=== PATIENT | female | born 1960 | race Caucasian/White ===

== ENCOUNTER 2022-01-25 17:38 | Emergency (ER) | payer MEDICARE, SELFPAY ==
[2022-01-25] VITALS (8 sets, daily range): BP systolic 142–159; BP diastolic 65–81; PULSE 76–86; RESP 18; TEMP 37.1; O2SAT 97–99; BMI 20.1
--- NOTE | 2022-01-25 18:18 | DI.RAD.S_ITS ---
PROCEDURE: XR CHEST 1V INDICATIONS: chest pain TECHNIQUE: One view of the chest was acquired. COMPARISON: None. FINDINGS: Surgical changes and devices: None. Lungs and pleura: Lungs are clear. No pleural effusions or pneumothorax. Mediastinum: Mediastinal contours appear normal. Heart size is normal. Bones and chest wall: No suspicious bony lesions. Overlying soft tissues appear unremarkable. IMPRESSION: No acute cardiopulmonary abnormality. Dictated by: Richar Peterson M.D. on 01/25/2022 at 19:44 Approved by: Richar Peterson M.D. on 01/25/2022 at 19:44
[2022-01-25 18:54] LABS: COVID19 -Nasal RAPID Negative (Negative)
[2022-01-25 19:32] LABS: Add Manual Diff / Slide Review NO; Basophils Absolute Auto 100 /uL (0-100); Basophils Percent Auto 1.3 % (0-2); Eosinophils Absolute Auto 100 /uL (0-450); Eosinophils Percent Auto 1.5 % (2-4); Hematocrit 34.4 % (36-46); Hemoglobin 11.5 g/dL (12.0-16.0); Lymphocytes Absolute Auto 2300 /uL (1100-4500); Lymphocytes Percent Auto 27.1 % (25-40); Mean Corpuscular HGB Conc 33.4 % (30-36); Mean Corpuscular Hemoglobin 29.4 PG (26-34); Mean Corpuscular Volume 88.1 fL (80-100); Monocytes Absolute Auto 400 /uL (0-900); Monocytes Percent Auto 5.1 % (3-14); Neutrophils Absolute Auto 5500 /uL (1500-7000); Platelet Count 397 X10^3/uL (150-400); Red Cell Distribution Width 13.3 % (11.6-14.8); White Blood Cell Count 8.4 X10^3/uL (4.5-11.0)
[2022-01-25 20:08] LABS: Alanine Aminotransferase 19 IU/L (<35); Albumin 4.5 g/dL (3.5-5.0); Albumin Globulin Ratio 1.5 (1.0-2.8); Alkaline Phosphatase 61 U/L (38-126); Aspartate Aminotransferase 37 IU/L (14-36); BUN Creatinine Ratio 16.9 (6-22); Bilirubin Total 0.3 mg/dL (0.2-1.3); Blood Urea Nitrogen 27 mg/dL (7-17); Calcium 9.1 mg/dL (8.4-10.2); Carbon Dioxide 32 mmol/L (22-32); Chloride 103 mmol/L (98-107); Creatine Kinase 134 U/L (30-135); Estimated Glomerular Filt Rate 36 mL/min (>60); Globulin 3.1 g/dL (1.7-4.1); Glucose 121 mg/dL (80-110); HEMOLYSIS < 15 (0-50); Lipase 223 U/L (23-300); Magnesium 2.3 mg/dL (1.6-2.3); Sodium 141 mmol/L (137-145); Total Protein 7.6 g/dL (6.3-8.2)
[2022-01-25 20:20] LABS: Troponin I < 0.012 ng/mL (0.01-0.034)
--- NOTE | 2022-01-25 20:21 | ED.NEUROSD ---
HPI - Neuro Symptoms/Deficit General Chief Complaint: Neuro Symptoms/Deficit Stated Complaint: tingly throughout body/prev stroke-head&dizzy Time Seen by Provider: 01/25/22 19:41 Source: patient Mode of arrival: Family Vehicle History of Present Illness HPI Narrative: Patient is a 62-year-old female history of 3 strokes. She said her for stroke she had a simultaneous right and left stroke, her neck stroke was on the left side she had some numbness tingling weakness and garbled speech at that time. She has residual bilateral numbness and tingling for which he takes gabapentin for. She says over last few days she just does not feel quite right. She has generalized fatigue weakness she has got tingling all over. No significant weakness no speech difficulty. She has had some blurry vision is. She feels nauseous but no vomiting. She has had some ongoing chest pressure is which she feels like is worse at nighttime. It is not any worse with exertion. It is also not any worse today than it has been previously. She also has a slight headache on the left which is abnormal for her. On Anticoagulants: Yes Related Data Allergies Allergy/AdvReac Type Severity Reaction Status Date / Time Sulfa (Sulfonamide Allergy Redness of Verified 01/25/22 18:17 Antibiotics) Skin Review of Systems Review of Systems Narrative: GENERAL: Denies chills, fatigue, malaise, fever, sweats, travel HEENT: Denies sinus pain, ear pain, sore throat, difficulty swallowing, neck pain RESPIRATORY: Denies dyspnea, cough, wheezing, hemoptysis, sputum. CARDIOVASCULAR: Denies chest pain, palpitations, orthopnea, edema GASTROINTESTINAL: Denies nausea, vomiting, abdominal pain, diarrhea, constipation, melena. : Denies dysuria, frequency, incontinence, hematuria, urinary retention, flank pain. MUSCULOSKELETAL: Denies weakness, joint pain, or bony pain SKIN: No rash, no erythema, no pruritus NEUROLOGIC: See HPI PSYCHIATRIC: No concerning psychosocial issues. 12 point review of systems is negative except for those stated above and HPI Hematologic/Lymphatic On Anticoagulants: Yes Patient History Social History Smoking Status: Former smoker Smoking Status: Former smoker tobacco type: cigarettes alcohol intake frequency: 0-2 drinks per day Substance Use Type: does not use Exam Initial Vital Signs Initial Vital Signs: Vital Signs Temperature 98.7 F 01/25/22 18:18 Pulse Rate 76 01/25/22 18:18 Respiratory Rate 18 01/25/22 18:18 Blood Pressure 157/67 H 01/25/22 18:18 Pulse Oximetry 99 01/25/22 18:18 Oxygen Delivery Method 01/25/22 18:18 GENERAL: Alert 62-year-old female and in no acute distress. HEENT: Head atraumatic,EOMI, pupils reactive, face symmetric, moist mucous membranes CARDIOVASCULAR: Regular rate and rhythm without murmurs, rubs or gallops. RESPIRATORY: Breath sounds equal bilaterally, no wheezes rales or rhonchi. ABDOMEN: Soft, nontender. Normoactive bowel sounds all 4 quadrants. No guarding or rebound. EXTREMITIES: Normal range of motion, no clubbing or edema. Neurovascularly intact NEUROLOGICAL: Alert and oriented x4.Normal gait and speech. Cranial nerves II through XII grossly intact. Good [id number], good [id number], strength equal bilaterally, no dysarthria or aphasia, sensation in tact to soft touch bilaterally, no visual changes, no facial droop SKIN: Warm, dry, no laceration, no petechiae, no rashes or lesions. Scores NIH Stroke Scale Level of Conciousness: Alert, keenly responsive Ask month/age: Answers both questions correctly. Open/close eyes, close hand: Performs both tasks correctly Best gaze horizontal: Normal Visual bowers: No visual loss Facial palsy: Normal symetrical movement Left arm drift: No drift for full 10 sec Right arm drift: No drift for full 10 sec Left leg drift: No drift for full 5 sec Right leg drift: No drift for full 5 sec Limb ataxia: Absent Sensory on face/arms/legs: Normal, no sensory loss Best language: No aphasia, normal Dysarthria: Normal Extinction or inattention: No abnormality Total NIH Stroke scale score: 0 Course Orders Ordered: ED Orders 01/25/22 20:38 CT head/brain wo con Stat Vital Signs Vital signs: Vital Signs - 8 hr 01/25/22 21:30 01/25/22 21:34 01/25/22 21:34 Pulse Rate 83 84 Blood Pressure 159/70 H Pulse Oximetry 98 98 Oxygen Delivery Method Room Air MDM - Neuro Symptoms/Deficit Lab Data Result diagrams: 01/25/22 18:30 06/18/22 18:30 Labs: Lab Results 01/25/22 01/25/22 01/25/22 Range/Units 18:30 18:30 18:32 WBC 8.4 (4.5-11.0) X10^3/uL RBC 3.90 L (4.0-5.2) X10^6/uL Hgb 11.5 L (12.0-16.0) g/dL Hct 34.4 L (36-46) % MCV 88.1 (80-100) fL MCH 29.4 (26-34) PG MCHC 33.4 (30-36) % RDW 13.3 (11.6-14.8) % Plt Count 397 (150-400) X10^3/uL Neut % (Auto) 65.0 (50-75) % Lymph % (Auto) 27.1 (25-40) % Cavalier % (Auto) 5.1 (3-14) % Eos % (Auto) 1.5 L (2-4) % Baso % (Auto) 1.3 (0-2) % Neut # (Auto) 5500 (3547-0252) /uL Lymph # (Auto) 2300 (0745-5292) /uL Cavalier # (Auto) 400 (0-900) /uL Eos # (Auto) 100 (0-450) /uL Baso # (Auto) 100 (0-100) /uL Sodium 141 (137-145) mmol/L Potassium 4.0 (3.4-5.1) mmol/L Chloride 103 (98-107) mmol/L Carbon Dioxide 32 (22-32) mmol/L BUN 27 H (7-17) mg/dL Creatinine 1.60 H (0.52-1.04) mg/dL Estimated GFR 36 L (>60) mL/min BUN/Creatinine Ratio 16.9 (6-22) Glucose 121 H (80-110) mg/dL Calcium 9.1 (8.4-10.2) mg/dL Magnesium 2.3 (1.6-2.3) mg/dL Total Bilirubin 0.3 (0.2-1.3) mg/dL AST 37 H (14-36) IU/L ALT 19 (<35) IU/L Alkaline Phosphatase 61 (38-126) U/L Total Creatine Kinase 134 (30-135) U/L CK-MB (CK-2) 0.89 (<2.37) ng/mL CK-MB (CK-2) Rel Index 0.7 L (1.5-5.0) % Troponin I < 0.012 (0.01-0.034) ng/mL Total Protein 7.6 (6.3-8.2) g/dL Albumin 4.5 (3.5-5.0) g/dL Globulin 3.1 (1.7-4.1) g/dL Albumin/Globulin Ratio 1.5 (1.0-2.8) Lipase 223 (23-300) U/L SARS-CoV-2 (PCR) Negative (Negative) Imaging Data CT scan - head: Radiologist's Impression: Ysabel Cordero MR#: [id number] : 1960 Acct:[id number] Age/Sex: 62 / F Date of Service: 01/25/22 Loc: ED Accession Number: [id number] ?? Procedure: CT head/brain wo con Ordering Provider: Kym Gracia D.O. PROCEDURE:? CT HEAD/BRAIN WO CON ? INDICATIONS:? left sided headache on eliquis ? TECHNIQUE:? Noncontrast 4.5 mm thick angled axial sections acquired from the foramen magnum to the vertex, with coronal and sagittal reformats.? For radiation dose reduction, the following was used:? automated exposure control, adjustment of mA and/or kV according to patient size.? ? COMPARISON:? None. ? FINDINGS:? Image quality:? Excellent.? ? CSF spaces:? Basal cisterns are patent.? No extra-axial fluid collections.? Ventricles are normal in size and shape.? ? Brain:? No midline shift.? No intracranial masses or hemorrhage.? Massey-white matter interface is normal.? Old encephalomalacia of the medial right occipital brain parenchyma, no acute stroke suspected. ? Skull and face:? Calvarium and visualized facial bones are intact, without suspicious lesions.? ? Sinuses:? Visualized sinuses and mastoids are clear.? ? IMPRESSION:? Prior medial right occipital stroke with encephalomalacia, chronic in appearance.? No acute disease, no intracranial hemorrhage. ? ? Dictated by: Markie Hart M.D. on 01/25/2022 at 21:06 ? ? Chest x-ray: Radiologist's Impression: Signed Patient: Ysabel Cordero MR#: [id number] : 1960 Acct:[id number] Age/Sex: 62 / F Date of Service: 01/25/22 Loc: ED Accession Number: [id number] ?? Procedure: XR chest 1V Ordering Provider: Ev Davidson D.O. PROCEDURE:? XR CHEST 1V ? INDICATIONS:? chest pain ? TECHNIQUE:? One view of the chest was acquired.? ? COMPARISON:? None. ? FINDINGS:? ? Surgical changes and devices:? None.? ? Lungs and pleura:? Lungs are clear.? No pleural effusions or pneumothorax.? ? Mediastinum:? Mediastinal contours appear normal.? Heart size is normal.? ? Bones and chest wall:? No suspicious bony lesions.? Overlying soft tissues appear unremarkable.? ? IMPRESSION:? No acute cardiopulmonary abnormality. ? ? ? Dictated by: Richar Peterson M.D. on 01/25/2022 at 19:44 ? ? Approved by: Richar Peterson M.D. on 01/25/2022 at 19:44 ? ECG Data Interpretation: Normal sinus rhythm rate 85 MA interval 128 QRS [address] changes no T-wave inversions MDM Narrative Medical decision making narrative: Patient has a history of multiple previous strokes presents today with wear to ongoing symptoms but nothing focal or stroke like. Head CT is negative. Blood work is overall reassuring her COVID is negative. Electrolytes and creatinine are also within normal limits. At this time I do not have any explanation for her ongoing fatigue and ongoing numbness and tingling bilaterally. She has no focal deficits no sign of infection. Discharge Plan Departure Patient Disposition: Home Clinical Impression: Fatigue Instructions: DI for Fatigue Activity Restrictions/Additional Instructions: *You have been diagnosed with fatigue *What to do: At this time I do not have an explanation for your ongoing fatigue. Her workup today in the emergency department is reassuring. Head CT looks stable no evidence heart attack or stroke today. Please continue to rest and hydrate. Return if symptoms worsen. *Continue to take medications as directed *Follow up with your primary care provider in 2-3 days or call [phone] *Return to ER if you should have increasing symptoms, chest pain, shortness of breath, numbness tingling weakness speech difficulty worsening vision or any new, worsening or concerning symptoms Referrals: Cain Chamberlain MD [Primary Care Provider] - Visit Report Forms: Patient Portal/API
[2022-01-25 20:24] LABS: CKMB % Relative Index 0.7 % (1.5-5.0); Creatine Kinase MB 0.89 ng/mL (<2.37)
--- NOTE | 2022-01-25 20:38 | DI.CT.S_ITS ---
PROCEDURE: CT HEAD/BRAIN WO CON INDICATIONS: left sided headache on eliquis TECHNIQUE: Noncontrast 4.5 mm thick angled axial sections acquired from the foramen magnum to the vertex, with coronal and sagittal reformats. For radiation dose reduction, the following was used: automated exposure control, adjustment of mA and/or kV according to patient size. COMPARISON: None. FINDINGS: Image quality: Excellent. CSF spaces: Basal cisterns are patent. No extra-axial fluid collections. Ventricles are normal in size and shape. Brain: No midline shift. No intracranial masses or hemorrhage. Massey-white matter interface is normal. Old encephalomalacia of the medial right occipital brain parenchyma, no acute stroke suspected. Skull and face: Calvarium and visualized facial bones are intact, without suspicious lesions. Sinuses: Visualized sinuses and mastoids are clear. IMPRESSION: Prior medial right occipital stroke with encephalomalacia, chronic in appearance. No acute disease, no intracranial hemorrhage. Dictated by: Markie Hart M.D. on 01/25/2022 at 21:06 Approved by: Markie Hart M.D. on 01/25/2022 at 21:06
--- NOTE | 2022-01-25 21:19 | PC.NURSE ---
Pt states for the past few days she has felt off she complains of tingling throughout entire body, left sided DAWKINS, weakness, and pressure in her chest. Pt is A&Ox4 and has normal gait. Currently resting in bed.
== END 2022-01-25 22:15 | disposition home or self-care (01) ==
PROVIDERS: Emergency Medicine; Emergency Provider Emergency Medicine; PCP Internal Medicine
DX: R53.83 Other fatigue (principal); H53.8 Other visual disturbances; R51.9 Headache, unspecified; Z79.01 Long term (current) use of anticoagulants; R07.9 Chest pain, unspecified; Z20.822 Contact with and (suspected) exposure to COVID-19; Z86.73 Personal history of transient ischemic attack (TIA), and cerebral infarction without residual deficits
CPT/HCPCS: 36415; 70450; 71045; 80053; 82550; 82553; 83690; 83735; 84484; 85025; 87635; 93005; 93010; 99284; C9803

== ENCOUNTER 2022-08-23 17:45 | Emergency (ER) | payer MEDICARE, SELFPAY ==
[2022-08-23] VITALS (17 sets, daily range): BP systolic 121–164; BP diastolic 59–97; PULSE 72–86; RESP 14–35; TEMP 36.7; O2SAT 96–99; BMI 20.9
--- NOTE | 2022-08-23 17:56 | DI.RAD.S_ITS ---
PROCEDURE: XR CHEST 1V INDICATIONS: chest pain TECHNIQUE: One view of the chest was acquired. COMPARISON: [facility], CR, XR CHEST 1V, 01/25/2022, 18:39. FINDINGS: Surgical changes and devices: None. Lungs and pleura: Lungs are clear. No pleural effusions or pneumothorax. Mediastinum: Mediastinal contours appear normal. Heart size is normal. Bones and chest wall: No suspicious bony lesions. Overlying soft tissues appear unremarkable. IMPRESSION: No acute cardiopulmonary pathology. Dictated by: Aditya Wyman M.D. on 08/23/2022 at 18:40 Approved by: Aditya Wyman M.D. on 08/23/2022 at 18:42
[2022-08-23 18:37] LABS: Add Manual Diff / Slide Review NO; Basophils Absolute Auto 100 /uL (0-100); Basophils Percent Auto 0.9 % (0-2); Eosinophils Absolute Auto 200 /uL (0-450); Eosinophils Percent Auto 3.1 % (2-4); Hemoglobin 11.9 g/dL (12.0-16.0); Lymphocytes Absolute Auto 1900 /uL (1100-4500); Lymphocytes Percent Auto 32.2 % (25-40); Mean Corpuscular HGB Conc 33.1 % (30-36); Mean Corpuscular Hemoglobin 29.8 PG (26-34); Monocytes Absolute Auto 600 /uL (0-900); Monocytes Percent Auto 10.2 % (3-14); Neutrophils Absolute Auto 3200 /uL (1500-7000); Neutrophils Percent Auto 53.6 % (50-75); Platelet Count 284 X10^3/uL (150-400); Red Cell Distribution Width 14.7 % (11.6-14.8); White Blood Cell Count 5.9 X10^3/uL (4.5-11.0)
[2022-08-23 18:47] LABS: INR 1.2 (0.9-1.3); Prothrombin Time 14.3 SECONDS (10.1-12.7)
[2022-08-23 18:49] LABS: PTT Partial Thromboplastin Tim 38 SECONDS (26-36)
[2022-08-23 18:51] LABS: Alanine Aminotransferase 375 IU/L (<35); Alkaline Phosphatase 424 U/L (38-126); Aspartate Aminotransferase 263 IU/L (14-36); BUN Creatinine Ratio 13.9 (6-22); Bilirubin Total 0.9 mg/dL (0.2-1.3); Blood Urea Nitrogen 23 mg/dL (7-17); Calcium 9.5 mg/dL (8.4-10.2); Carbon Dioxide 30 mmol/L (22-32); Chloride 101 mmol/L (98-107); Creatine Kinase 143 U/L (30-135); Estimated Glomerular Filt Rate 35 mL/min (>60); Glucose 95 mg/dL (80-110); HEMOLYSIS < 15 (0-50); Lipase 153 U/L (23-300); Potassium 3.7 mmol/L (3.4-5.1); Sodium 141 mmol/L (137-145); Total Protein 7.9 g/dL (6.3-8.2)
[2022-08-23] MEDS: ASPIRIN 81 MG CHEW TAB 324 MG PO (18:59)
[2022-08-23 19:03] LABS: Troponin I < 0.012 ng/mL (0.01-0.034)
[2022-08-23 19:06] LABS: CKMB % Relative Index 0.5 % (1.5-5.0); Creatine Kinase MB 0.73 ng/mL (<2.37)
--- NOTE | 2022-08-23 19:14 | ED_ITS ---
HPI - Chest Pain General Chief Complaint: Chest Pain Stated Complaint: Chest pain, squeezing, light headed, not right Time Seen by Provider: 08/23/22 19:14 Source: patient Mode of arrival: Ambulatory Limitations: no limitations History of Present Illness HPI narrative: This is a 62-year-old female with history of factor 8 elevation, 3 prior strokes on Eliquis, CKD stage 3, Crohn's disease, diverticulitis, diet-controlled diabetes, hypertension dyslipidemia and prior kidney stones. Patient states she woke up from a nap at about 1300 day had left-sided chest squeezing which he describes intermittent rating her jaw and left arm. She felt dizzy during these episodes and felt short of breath during episodes they resolved on their own she is had an intermittently. She is had nausea when she has a squeezing sensation in her chest. Patient states she has not had similar symptoms in the past. She also notes she is had left flank pain for the past week she states she has a history of kidney stones feels similar. Patient denies dysuria frequency or urgency she states it has been a little bit more difficult to urinate. She is been constipated. She states in terms of surgeries she is had lithotripsies, ureteral stents, x3 with a complete hysterectomy for endometriosis. Patient states she is never had a stress test or cardiac catheterization. States she is allergic to sulfa tetracycline. She does smoke tobacco, denies alcohol, denies illicit. Primary care is Dr. Chamberlain she has not appointment on Thursday. Related Data Allergies Allergy/AdvReac Type Severity Reaction Status Date / Time Sulfa (Sulfonamide Allergy Redness of Verified 08/23/22 17:50 Antibiotics) Skin Review of Systems Review of Systems ROS Unobtainable: All systems reviewed & are unremarkable except as noted in HPI and below Patient History Social History Smoking Status: Current every day smoker Smoking Status: Current every day smoker tobacco type: cigarettes alcohol intake frequency: 0-2 drinks per day Substance Use Type: does not use Exam Narrative Exam Narrative: GENERAL: Alert and oriented x three, female in mild distress. HEENT: Head normocephalic, atraumatic, EOMI, pupils reactive, face symmetric, moist mucous membranes NECK: Supple, full range of motion CARDIOVASCULAR: Regular rate and rhythm without murmurs, rubs or gallops. No JVD. No swelling bilateral lower extremities. RESPIRATORY: Breath sounds equal bilaterally, no wheezes rales or rhonchi. ABDOMEN: Soft, nontender. Normoactive bowel sounds all 4 quadrants. No guarding or rebound, rigidity, no mass : No CVA tenderness EXTREMITIES: Normal range of motion, no clubbing or edema. Neurovascularly intact NEUROLOGICAL: Cranial nerves II through XII grossly intact. Moving all extremities SKIN: Warm, dry, no petechiae, no rashes or lesions. Initial Vital Signs Initial Vital Signs: Vital Signs Temperature 98.1 F 08/23/22 17:50 Pulse Rate 86 08/23/22 17:50 Respiratory Rate 18 08/23/22 17:50 Blood Pressure 151/68 H 08/23/22 17:50 Pulse Oximetry 99 08/23/22 17:50 Oxygen Delivery Method 08/23/22 17:50 Course Orders Ordered: Discontinued Medications Aspirin (Aspirin 81 Mg Chew Tab) 324 mg PO NOW ONE Stop: 08/23/22 17:57 Last Admin: 08/23/22 18:59 Dose: 324 mg Documented By: KALLI Nitroglycerin (Nitroglycerin 0.4 Mg Sl Tab) 0.4 mg SL [id number] PRN PRN Reason: Chest Pain Last Admin: 08/23/22 19:46 Dose: 0.4 mg Documented By: BS Consultations Consultation #1: Dr. Son, recommends testing hospital for chest pain repeat labs in the morning, if patient discharged home can follow-up with GI for possible outpatient ERCP does not appear to be obstructed Time: 21:43 Vital Signs Vital signs: Vital Signs - 8 hr 08/23/22 17:50 08/23/22 18:01 08/23/22 18:03 Temperature 98.1 F Pulse Rate 86 78 81 Respiratory Rate 18 Blood Pressure 151/68 H Pulse Oximetry 99 99 99 Oxygen Delivery Method Room Air 08/23/22 18:03 08/23/22 18:30 08/23/22 18:31 Temperature Pulse Rate 80 Respiratory Rate 23 Blood Pressure 164/72 H 138/62 Pulse Oximetry 96 Oxygen Delivery Method 08/23/22 18:31 08/23/22 19:00 08/23/22 19:00 Temperature Pulse Rate 78 78 Respiratory Rate 23 28 H Blood Pressure 127/59 L Pulse Oximetry 98 97 Oxygen Delivery Method 08/23/22 19:46 08/23/22 19:51 08/23/22 19:30 Temperature Pulse Rate 79 75 Respiratory Rate Blood Pressure 152/74 H 143/65 H 162/78 H Pulse Oximetry Oxygen Delivery Method 08/23/22 19:30 08/23/22 19:44 08/23/22 19:44 Temperature Pulse Rate 78 80 Respiratory Rate 19 24 Blood Pressure 152/74 H Pulse Oximetry 98 98 Oxygen Delivery Method 08/23/22 19:49 08/23/22 19:49 08/23/22 20:00 Temperature Pulse Rate 78 Respiratory Rate 18 Blood Pressure 143/65 H 144/67 H Pulse Oximetry 97 Oxygen Delivery Method 08/23/22 20:00 08/23/22 20:30 08/23/22 20:30 Temperature Pulse Rate 80 80 Respiratory Rate 21 35 H Blood Pressure 137/97 H Pulse Oximetry 97 96 Oxygen Delivery Method 08/23/22 21:00 08/23/22 21:01 08/23/22 21:01 Temperature Pulse Rate 74 72 Respiratory Rate 20 19 Blood Pressure 121/62 Pulse Oximetry 98 98 Oxygen Delivery Method MDM - Chest Pain Lab Data Result diagrams: 08/23/22 18:00 08/23/22 18:00 Labs: Lab Results 08/23/22 08/23/22 08/23/22 Range/Units 16:47 18:00 18:00 WBC 5.9 (4.5-11.0) X10^3/uL RBC 4.00 (4.0-5.2) X10^6/uL Hgb 11.9 L (12.0-16.0) g/dL Hct 36.0 (36-46) % MCV 90.0 (80-100) fL MCH 29.8 (26-34) PG MCHC 33.1 (30-36) % RDW 14.7 (11.6-14.8) % Plt Count 284 (150-400) X10^3/uL Neut % (Auto) 53.6 (50-75) % Lymph % (Auto) 32.2 (25-40) % [place] % (Auto) 10.2 (3-14) % Eos % (Auto) 3.1 (2-4) % Baso % (Auto) 0.9 (0-2) % Neut # (Auto) 3200 (1025-7397) /uL Lymph # (Auto) 1900 (3665-4722) /uL [place] # (Auto) 600 (0-900) /uL Eos # (Auto) 200 (0-450) /uL Baso # (Auto) 100 (0-100) /uL PT 14.3 H (10.1-12.7) SECONDS INR 1.2 (0.9-1.3) APTT 38 H (26-36) SECONDS Sodium (137-145) mmol/L Potassium (3.4-5.1) mmol/L Chloride (98-107) mmol/L Carbon Dioxide (22-32) mmol/L BUN (7-17) mg/dL Creatinine (0.52-1.04) mg/dL Estimated GFR (>60) mL/min BUN/Creatinine Ratio (6-22) Glucose (80-110) mg/dL Calcium (8.4-10.2) mg/dL Magnesium (1.6-2.3) mg/dL Total Bilirubin (0.2-1.3) mg/dL AST (14-36) IU/L ALT (<35) IU/L Alkaline Phosphatase (38-126) U/L Total Creatine Kinase (30-135) U/L CK-MB (CK-2) (<2.37) ng/mL CK-MB (CK-2) Rel Index (1.5-5.0) % Troponin I (0.01-0.034) ng/mL Total Protein (6.3-8.2) g/dL Albumin (3.5-5.0) g/dL Globulin (1.7-4.1) g/dL Albumin/Globulin Ratio (1.0-2.8) Lipase (23-300) U/L Urine RBC None seen (0-5/HPF) Urine WBC 0-1/hpf (0-5/HPF) Urine Bacteria None seen (None) Ur Culture Indicated? Cult not indicated SARS-CoV-2 (PCR) (Negative) 08/23/22 08/23/22 08/23/22 Range/Units 18:00 18:30 20:20 WBC (4.5-11.0) X10^3/uL RBC (4.0-5.2) X10^6/uL Hgb (12.0-16.0) g/dL Hct (36-46) % MCV (80-100) fL MCH (26-34) PG MCHC (30-36) % RDW (11.6-14.8) % Plt Count (150-400) X10^3/uL Neut % (Auto) (50-75) % Lymph % (Auto) (25-40) % [place] % (Auto) (3-14) % Eos % (Auto) (2-4) % Baso % (Auto) (0-2) % Neut # (Auto) (0052-6410) /uL Lymph # (Auto) (6505-7087) /uL [place] # (Auto) (0-900) /uL Eos # (Auto) (0-450) /uL Baso # (Auto) (0-100) /uL PT (10.1-12.7) SECONDS INR (0.9-1.3) APTT (26-36) SECONDS Sodium 141 (137-145) mmol/L Potassium 3.7 (3.4-5.1) mmol/L Chloride 101 (98-107) mmol/L Carbon Dioxide 30 (22-32) mmol/L BUN 23 H (7-17) mg/dL Creatinine 1.66 H (0.52-1.04) mg/dL Estimated GFR 35 L (>60) mL/min BUN/Creatinine Ratio 13.9 (6-22) Glucose 95 (80-110) mg/dL Calcium 9.5 (8.4-10.2) mg/dL Magnesium 2.0 (1.6-2.3) mg/dL Total Bilirubin 0.9 (0.2-1.3) mg/dL AST 263 H (14-36) IU/L ALT 375 H (<35) IU/L Alkaline Phosphatase 424 H (38-126) U/L Total Creatine Kinase 143 H (30-135) U/L CK-MB (CK-2) 0.73 (<2.37) ng/mL CK-MB (CK-2) Rel Index 0.5 L (1.5-5.0) % Troponin I < 0.012 < 0.012 (0.01-0.034) ng/mL Total Protein 7.9 (6.3-8.2) g/dL Albumin 4.5 (3.5-5.0) g/dL Globulin 3.4 (1.7-4.1) g/dL Albumin/Globulin Ratio 1.3 (1.0-2.8) Lipase 153 (23-300) U/L Urine RBC (0-5/HPF) Urine WBC (0-5/HPF) Urine Bacteria (None) Ur Culture Indicated? SARS-CoV-2 (PCR) Negative (Negative) Urine Dip Bedside Urine Glucose Negative Bedside Urine Bilirubin - Negative Bedside Urine Ketone - Negative Urine Specific [place] 1.015 Bedside Urine Occult Blood +/- Bedside Urine pH 6.0 Bedside Urine Protein - Negative Bedside Urine Urobilinogen - Negative Bedside Urine Nitrite - Negative Bedside Urine Leukocytes - Negative Esterase Imaging Data Chest x-ray: Radiologist's Impression: [address] [id number] XRay Report Signed Patient: Ysabel Cordero MR#: [id number] : 1960 Acct:[id number] Age/Sex: 62 / F Date of Service: 08/23/22 Loc: ED Accession Number: [id number] ?? Procedure: XR chest 1V Ordering Provider: Clifton Marin D.O. PROCEDURE:? XR CHEST 1V ? INDICATIONS:? chest pain ? TECHNIQUE:? One view of the chest was acquired.? ? COMPARISON:? [facility], , XR CHEST 1V, 01/25/2022, 18:39. ? FINDINGS:? ? Surgical changes and devices:? None.? ? Lungs and pleura:? Lungs are clear.? No pleural effusions or pneumothorax.? ? Mediastinum:? Mediastinal contours appear normal.? Heart size is normal.? ? Bones and chest wall:? No suspicious bony lesions.? Overlying soft tissues appear unremarkable.? ? IMPRESSION:? No acute cardiopulmonary pathology. ? ? Dictated by: Aditya Wyman M.D. on 08/23/2022 at 18:40 ? ? Approved by: Aditya Wyman M.D. on 08/23/2022 at 18:42?? ECG Data Attestation: I personally reviewed and interpreted this ECG as follows: Prior ECG tracings: available for review Interpretation: Sinus rhythm rate of 79 CO 138 QRS of [address] QTC [address] No acute ST elevation or depression noted. Patient has prior from 01/25/2022 with no acute changes. NSR rate of 73, pr 144, qrs 90, Qtc 409. No acute ST changes. MDM Narrative Medical decision making narrative: This is a 62-year-old female with history of hypertension, diabetes, factor 8 disorder, patient states not hemophilia, diet-controlled diabetes with complaint of left chest pain squeezing radiating to her jaw arm intermittent. Has resolved at this time she also notes a little bit of left flank pain. Patient does not have acute EKG changes initial troponin was negative, CBC does not show major changes. Creatinine appears stable from her baseline, she does have an elevated LFTs she is nontender on exam has not had any right-sided pain. Lipase is negative and bilirubins normal. Patient ultrasound shows possible sludge in the common bile duct. Patient's troponin negative x2. Discussed with patient would like to keep her chest pain labs, discussed that I am concerned for cardiac source. Patient case was also discussed with Dr. Son from General surgery she recommends patient staying in the hospital cardiac labs that she would recommend LFTs to be trended. If patient chooses return home which patient has done troponins follow up with GI for possible ERCP as an outpatient. We also discussed patient myself she has an appointment this week with her primary care and will follow with them. Discharge Plan Departure Patient Disposition: Home Clinical Impression: Chest pain, Elevated LFTs Instructions: DI for Chest Pain Activity Restrictions/Additional Instructions: Do recommend you stay for chest pain arms and overnight and further cardiac workup. Talk with your physician at your appointment on Thursday about having stress testing performed. It is also noticed that there is some sludge in the common bile duct on her ultrasound today, her liver enzymes are slightly elevated. I spoke with General surgery they recommend trending her labs, follow up with gastroenterology for possible ERCP. Referral is included below. Please return for new or worsening chest pain, passing out, shortness of breath, sweating, fevers, persistent vomiting, new right upper quadrant or abdominal pain or other new or concerning changes. Referrals: Cain Chamberlain MD [Primary Care Provider] - Kristen Cadena MD [Physician] - Solis Marie MD [Physician] - Stand Alone Forms: Patient Portal/API
--- NOTE | 2022-08-23 19:32 | DI.US.S_ITS ---
PROCEDURE: US ABDOMEN COMPLETE INDICATIONS: ELEVATED LFTS; LEFT FLANK PAIN TECHNIQUE: Real-time scanning was performed of the abdominal and retroperitoneal organs, with image documentation. COMPARISON: None. FINDINGS: Liver: Liver is normal in size and homogeneous in echotexture. Gallbladder: Free of calculus or abnormal gallbladder wall thickening Biliary ducts: Intrahepatic bile ducts are slightly dilated. Extrahepatic bile duct caliber measures 7.5 mm. Normal is 6-7 mm or less in diameter, or 10 mm or less post-cholecystectomy. There appears to be a sludge or mural thickening involving the common bile duct. The gallbladder wall is not abnormally thickened Pancreas: Visualized portions of the pancreas are sonographically normal. Spleen: Spleen is normal in size and homogeneous in echotexture. Kidneys: Kidneys are normal in size and echotexture. Right kidney measures 8.8 cm long; left kidney measures 9.8 cm long. No hydronephrosis or nephrolithiasis. No solid masses. Aorta: Visualized aorta is normal in caliber at less than 3 cm. Iliacs: Proximal common iliac arteries are normal in caliber at less than 2.5 cm. IVC: Intrahepatic inferior vena cava is patent. Miscellaneous: No free abdominal fluid. IMPRESSION: No hepatic mass lesion is seen. Slight prominence of the intrahepatic bile ducts. The extrahepatic common bile duct is just above the upper limits of normal, at 7.5 mm. There appears to be debris/sludge or mural thickening involving the common bile duct. This may indicate presence of cholangitis. Dictated by: Markie Hart M.D. on 08/23/2022 at 20:43 Approved by: Markie Hart M.D. on 08/23/2022 at 20:46
[2022-08-23] MEDS: NITROGLYCERIN 0.4 MG SL TAB SL (19:46)
[2022-08-23 20:00] LABS: COVID19 -Nasal RAPID Negative (Negative)
[2022-08-23 20:15] LABS: Bacteria Urine None Seen; Culture Indicated Urine Cult Not Indicated; RBC Urine None Seen (0-5/HPF); WBC Urine 0-1/HPF (0-5/HPF)
[2022-08-23 21:05] LABS: Troponin I < 0.012 ng/mL (0.01-0.034)
[2022-08-23 21:38] LABS: Albumin 4.5 g/dL (3.5-5.0); Albumin Globulin Ratio 1.3 (1.0-2.8); Globulin 3.4 g/dL (1.7-4.1)
== END 2022-08-23 22:10 | disposition home or self-care (01) ==
PROVIDERS: Emergency Medicine; Emergency Provider Emergency Medicine; PCP Internal Medicine
DX: R07.9 Chest pain, unspecified (principal); R74.01 Elevation of levels of liver transaminase levels; Z20.822 Contact with and (suspected) exposure to COVID-19
CPT/HCPCS: 36415; 71045; 76700; 80053; 81003; 81015; 82550; 82553; 83690; 83735; 84484; 85025; 85610; 85730; 87635; 93005; 93010; 99284; C9803